=== PATIENT | female | born 1955 | race African-American/Black ===

== ENCOUNTER 2021-05-21 15:32 | Inpatient (IN) | payer MEDICARE ==
[~2021-05-21] VITALS: Ht 170.1 cm; Wt 108.9 kg
[2021-05-21 20:00] VITALS: BP 109/82
[2021-05-21] MEDS ORDERED: ZYPREXA15 M1 PO (20:01)
[2021-05-21 23:10] VITALS: BP 109/82
[2021-05-22 06:32] LABS: BASO % 0.6 % (0.0-1.0); EOS # 0.2 10*3/uL (0.0-0.4); EOS % 4.4 % (1.0-4.0); HEMATOCRIT 39.8 % (37.0-47.0); LYMPH # 1.7 10*3/uL (1.3-4.4); LYMPH % 33.9 % (27.0-41.0); MEAN CELL VOLUME 88.8 fl (81.0-99.0); MEAN CORPUSCULAR HGB CONC 32.7 g/dl (33.0-37.0); MEAN PLATELET VOLUME 8.4 fl (9.6-12.3); MONO # 0.7 10*3/uL (0.1-1.0); MONO % 13.1 % (3.0-9.0); NEUT # 2.4 10*3/uL (2.3-7.9); NEUT % 47.8 % (47.0-73.0); PLATELET COUNT AUTOMATED 298 10*3/uL (130-400); RED BLOOD COUNT 4.48 10*6/uL (4.10-5.10); RED CELL DISTRI WIDTH 13.5 % (0-14.5)
[2021-05-22 06:33] LABS: ALKALINE PHOSPHATASE 103 U/L (45-117); BUN 15 mg/dl (7-24); CHLORIDE 110 mmol/L (98-107); CHOLESTEROL 167 mg/dL (<200); CREATININE 0.81 mg/dL (0.55-1.02); LDL CHOLESTEROL 109 mg/dL (9-159); POTASSIUM 4.1 mmol/L (3.5-5.1); SGOT/AST 8 IU/L (3-35); SGPT/ALT 15 U/L (12-78); SODIUM 142 mmol/L (136-145); TOTAL PROTEIN 6.7 gm/dL (6.4-8.2); TRIGLYCERIDES 60 mg/dl (<150)
[2021-05-22 07:14] VITALS: BP 119/68
[2021-05-22 08:11] LABS: VITAMIN D, 25-HYDROXY 14.5 ng/mL (30-100)
[2021-05-22 20:00] VITALS: BP 113/74
[2021-05-23 07:26] VITALS: BP 153/90
[2021-05-23 20:00] VITALS: BP 128/61
[2021-05-24 08:00] VITALS: BP 120/72
[2021-05-24 20:00] VITALS: BP 143/82
[2021-05-25 08:03] VITALS: BP 122/56
[2021-05-25 20:04] VITALS: BP 136/74
[2021-05-26 07:37] VITALS: BP 102/59
[2021-05-26 20:00] VITALS: BP 143/82
[2021-05-27 07:55] VITALS: BP 138/72
[2021-05-27 20:00] VITALS: BP 109/53
[2021-05-28 08:10] VITALS: BP 110/65
[2021-05-28 20:00] VITALS: BP 126/64
[2021-05-29 07:52] VITALS: BP 116/64
[2021-05-29 20:00] VITALS: BP 111/70
[2021-05-30 06:19] LABS: BASO % 0.6 % (0.0-1.0); EOS # 0.2 10*3/uL (0.0-0.4); EOS % 3.7 % (1.0-4.0); HEMATOCRIT 39.5 % (37.0-47.0); LYMPH % 38.5 % (27.0-41.0); MEAN CORPUSCULAR HGB 28.2 pg (27.0-31.0); MEAN CORPUSCULAR HGB CONC 31.6 g/dl (33.0-37.0); MEAN PLATELET VOLUME 8.5 fl (9.6-12.3); MONO # 0.7 10*3/uL (0.1-1.0); MONO % 13.5 % (3.0-9.0); NEUT # 2.3 10*3/uL (2.3-7.9); NEUT % 43.3 % (47.0-73.0); PLATELET COUNT AUTOMATED 246 10*3/uL (130-400); RED BLOOD COUNT 4.44 10*6/uL (4.10-5.10); RED CELL DISTRI WIDTH 13.5 % (0-14.5); WHITE BLOOD COUNT 5.2 10*3/uL (4.8-10.8)
[2021-05-30 06:36] LABS: ALKALINE PHOSPHATASE 111 U/L (45-117); BUN 18 mg/dl (7-24); CHLORIDE 110 mmol/L (98-107); CREATININE 0.86 mg/dL (0.55-1.02); POTASSIUM 4.4 mmol/L (3.5-5.1); SGOT/AST 12 IU/L (3-35); SGPT/ALT 13 U/L (12-78); SODIUM 144 mmol/L (136-145); TOTAL PROTEIN 6.5 gm/dL (6.4-8.2)
[2021-05-30 07:48] VITALS: BP 102/50
[2021-05-30 19:27] VITALS: BP 103/55
[2021-05-31 07:45] VITALS: BP 106/56
[2021-05-31] MEDS ORDERED: VITAMIN D3125 MC1 PO (12:05)
[2021-05-31 20:00] VITALS: BP 103/70
[2021-06-01 07:31] VITALS: BP 107/84
[2021-06-01] MEDS ORDERED: B121000 MCG/1 IM (08:54)
[2021-06-01] MEDS ORDERED: DIVALPROEX SOD500 MG PO (08:54)
[2021-06-01] MEDS ORDERED: INVEGA SUSTENN156 MG IM (08:54)
== END 2021-06-01 11:30 | disposition home or self-care (01) | DRG 885 ==
LOC: 3N 15:32
PROVIDERS: Counselor Professional; ADMIT Psychiatry & Neurology Psychiatry; ATTEND Psychiatry & Neurology Psychiatry
DX: F23 Brief psychotic disorder (principal); E44.0 Moderate protein-calorie malnutrition; Z20.822 Contact with and (suspected) exposure to COVID-19; E66.9 Obesity, unspecified; E87.8 Other disorders of electrolyte and fluid balance, not elsewhere classified; R73.9 Hyperglycemia, unspecified; E53.8 Deficiency of other specified B group vitamins; E55.9 Vitamin D deficiency, unspecified; Z88.8 Allergy status to other drugs, medicaments and biological substances; Z91.14 Patient's other noncompliance with medication regimen; Z90.710 Acquired absence of both cervix and uterus; Z68.37 Body mass index [BMI] 37.0-37.9, adult

== ENCOUNTER 2021-07-30 10:07 | Emergency (ER) | payer MEDICARE ==
[~2021-07-30] VITALS: Wt 99.8 kg
[~2021-07-30 10:07] MED LIST: B121000 MCG/1 IM; DIVALPROEX SOD500 MG PO; INVEGA SUSTENN156 MG IM; VITAMIN D3125 MC1 PO; ZYPREXA15 M1 PO
[2021-07-30 10:39] LABS: BASO % 0.5 % (0.0-1.0); EOS # 0.1 10*3/uL (0.0-0.4); EOS % 1.7 % (1.0-4.0); HEMATOCRIT 41.9 % (37.0-47.0); LYMPH # 1.9 10*3/uL (1.3-4.4); LYMPH % 31.1 % (27.0-41.0); MEAN CELL VOLUME 86.4 fl (81.0-99.0); MEAN CORPUSCULAR HGB 28.2 pg (27.0-31.0); MEAN CORPUSCULAR HGB CONC 32.7 g/dl (33.0-37.0); MEAN PLATELET VOLUME 8.3 fl (9.6-12.3); MONO # 0.9 10*3/uL (0.1-1.0); MONO % 14.4 % (3.0-9.0); NEUT # 3.1 10*3/uL (2.3-7.9); NEUT % 52.1 % (47.0-73.0); PLATELET COUNT AUTOMATED 293 10*3/uL (130-400); RED BLOOD COUNT 4.85 10*6/uL (4.10-5.10); RED CELL DISTRI WIDTH 13.7 % (0-14.5)
[2021-07-30 11:04] LABS: BILIRUBIN Negative (Negative); BLOOD Negative (Negative); CLARITY Cloudy (Clear); COLOR Yellow (Yellow); GLUCOSE Negative (Negative); KETONE Trace (Negative); LEUKO ESTERASE 1+ (Negative); NITRITE Negative (Negative); PH 5.5 (4.5-8.0)
[2021-07-30 11:07] LABS: URINE AMPHETAMINES < 1000 (1000ng/ml); URINE BARBITURATES < 200 (200ng/ml); URINE BENZODIAZEPINES < 200 (200ng/ml); URINE CANNABINOIDS (THC) < 50 (50ng/ml); URINE COCAINE < 300 (300ng/ml); URINE METHADONE < 300 (300ng/ml); URINE OPIATES < 300 (300ng/ml)
[2021-07-30 11:09] LABS: BUN 11 mg/dl (7-24); CHLORIDE 109 mmol/L (98-107); CREATININE 0.99 mg/dL (0.55-1.02); POTASSIUM 3.5 mmol/L (3.5-5.1); SGOT/AST 9 IU/L (3-35); SGPT/ALT 15 U/L (12-78); SODIUM 142 mmol/L (136-145); TOTAL PROTEIN 7.5 gm/dL (6.4-8.2)
[2021-07-30 11:09] LABS: URINE PHENCYCLIDINE < 25 (25ng/ml)
[2021-07-30 11:10] LABS: ALKALINE PHOSPHATASE 116 U/L (45-117)
[2021-07-30 11:18] LABS: BACTERIA 2+; EPITHELIAL CELLS TNTC; RBC 0-2 rbc/hpf (0-2)
== END 2021-07-30 12:57 | disposition home or self-care (01) ==
LOC: ED 10:07
PROVIDERS: Family Medicine
DX: F20.9 Schizophrenia, unspecified (principal); Z20.822 Contact with and (suspected) exposure to COVID-19